=== PATIENT | female | born 1975 | race Caucasian/White ===

== ENCOUNTER 2022-02-15 17:58 | Emergency (ER) | payer OTHER ==
[2022-02-15 18:46] LABS: RED BLOOD COUNT 4.31 M/UL (4.00-5.10); WHITE BLOOD COUNT 7.5 K/UL (4.5-11.0)
[2022-02-15] MEDS ORDERED: OMNICEF 300 MG300 MG PO (20:43)
== END 2022-02-15 22:21 | disposition home or self-care (01) ==
LOC: ER1 17:58
PROVIDERS: Family Medicine
DX: R10.9 Unspecified abdominal pain (principal); R30.0 Dysuria; I10 Essential (primary) hypertension; N30.90 Cystitis, unspecified without hematuria; Z90.49 Acquired absence of other specified parts of digestive tract
CPT/HCPCS: 80053; 81001; 83690; 84703; 85025; 96374; 99284; J0696